=== PATIENT | female | born 1995 | race American Indian/Alaskan Native ===

== ENCOUNTER 2017-10-03 18:42 | Emergency (ER) | payer OTHER ==
[2017-10-03 18:53] VITALS: BMI 23.3
[2017-10-03 18:54] VITALS: BP 105/72; PULSE 92; TEMP 98.6; O2SAT 98
--- NOTE | 2017-10-03 19:58 | C.PDOC ---
History Of Present Illness 22 yo female c/o right eye itching and swelling that started just prior to arrival. Pt notes she ate pesto and pizza , shortly after she started to hear "wheezing" which self resolved. Then felt her right eye itching and swelling. Also feels some lip swelling. No rash. No difficulty breathing or swallowing. No tongue swelling. No h/o similar symptoms. Time Seen by Provider: 10/03/17 19:14 Chief Complaint (Nursing): Eye Problem History Per: Patient History/Exam Limitations: no limitations Onset/Duration Of Symptoms: Mins Current Symptoms Are (Timing): Still Present Past Medical History Vital Signs: Last Vital Signs Temp 98.6 F 10/03/17 18:53 Pulse 92 H 10/03/17 18:53 Resp 20 10/03/17 20:12 BP 105/72 10/03/17 18:53 Pulse Ox 98 10/03/17 20:06 Family History: States: Unknown Family Hx - Social History Hx Alcohol Use: No Hx Substance Use: No Review Of Systems Except As Marked, All Systems Reviewed And Found Negative. Eyes: Positive for: Eyelid Inflammation Physical Exam - Physical Exam Appears: Well, Non-toxic, No Acute Distress Skin: Normal Color, Warm, Dry Head: Atraumatic, Normacephalic Eye(s): bilateral: PERRL, EOMI, right: Other ((+) mild periorbital swelling to right eye) Ear(s): Bilateral: Normal Nose: Normal Oral Mucosa: Moist Tongue: No Swelling Lips: Swelling (mild right lower lip swelling) Throat: Normal, No Erythema, No Exudate, No Drooling, Other (no swelling) Neck: Normal, Normal ROM, Supple Chest: Symmetrical Cardiovascular: Rhythm Regular Respiratory: Normal Breath Sounds, No Accessory Muscle Use Gastrointestinal/Abdominal: Normal Exam, Soft, No Tenderness Back: Normal Inspection Extremity: Normal ROM Neurological/Psych: Oriented x3, Normal Speech ED Course And Treatment O2 Sat by Pulse Oximetry: 98 Progress Note: SOlumedrol, benadryl and pepcid given. On reassessment, patient is resting comfortable and tolerating PO with no intraoral swelling or difficulty breathing. Patient reports improvement of eye swelling. Pt was offered additional observation but requests to be discharged. She was instructed to follow up with physician/clinic in 1-2 days or return to ED if symptoms persist or worsen. Disposition - Disposition Disposition: HOME/ ROUTINE Disposition Time: 20:04 Condition: STABLE Additional Instructions: Follow up with primary medical doctor in 1-3 days without fail for further evaluation. Take medications as prescribed. Return to the emergency department at any time if symptoms persist or worsen. Prescriptions: DiphenhydrAMINE [Benadryl] 25 mg PO Q6 #20 cap Famotidine [Pepcid] 20 mg PO BID #10 tab predniSONE [Prednisone] 40 mg PO DAILY #8 tab Instructions: General Allergic Reaction (ED) Forms: [facility] (Welsh) - Clinical Impression Clinical Impression: Allergic reaction
[2017-10-03 20:12] VITALS: RESP 20
== END 2017-10-03 20:12 | disposition home or self-care (01) ==
LOC: C.ER 18:42
DX: T78.40XA Allergy, unspecified, initial encounter (principal); X58.XXXA Exposure to other specified factors, initial encounter
CPT/HCPCS: 96372; 99284; J2930